=== PATIENT | female | born 1965 | race Caucasian/White ===

== ENCOUNTER 2017-12-01 17:16 | Emergency (ER) | payer MEDICAID, SELFPAY ==
[2017-12-01 17:16] VITALS: BP 133/81; PULSE 73; RESP 16; TEMP 37.1; O2SAT 96; BMI 53.1
--- NOTE | 2017-12-01 18:09 | ED.VISSUMM ---
- ER Visit Summary Date of Service: 12/01/17 Chief Complaint: Cough History of Present Illness: The patient is a 52 F presenting with cough ?9 days. She states she has had subjective fever chills at home. She complains of rhinorrhea. She has had a productive cough. She admits to shortness of breath. Denies chest pain. Denies sick contacts. Denies other complaints. Physical Examination: Vitals are stable. Patient is afebrile. Alert no acute distress. HEENT exam is unremarkable. Pharynx is normal Neck is supple. Lungs are mild expiratory wheezing bilaterally Heart is regular rate and rhythm. Abdomen is soft nontender nondistended. Extremities are unremarkable. Skin is warm and dry. Remainder of exam is unremarkable. Emergency Department Course and Treatment: Patient is given albuterol Atrovent aerosols with improvement. Chest x-ray shows no acute process. Patient given a prescription for Tessalon Perles. She states she has an albuterol inhaler at home. Advised to follow-up with her primary care physician. Advised return to the ED for worsening complaints. Disposition: Discharge home Impression: URI This note was generated with [employer] dictation software. It may contain incorrect words, spelling, and punctuation that were not noted in review of the chart prior to signing ED Disposition - Plan for ED Patient: Chief Complaint: Cough Referrals: Oswald Erazo DO [Primary Care Provider] -
[2017-12-01] MEDS: Ipratropium/Albuterol Sulfate 3 ML AMPUL.NEB INHALATION (18:24)
[2017-12-01 18:25] VITALS: PULSE 69; RESP 18
--- NOTE | 2017-12-01 18:45 | RAD_ITS ---
STUDY: X-RAY CHEST REASON FOR EXAM: Female, 52 years old. Cough TECHNIQUE: Frontal and lateral views COMPARISON: None. FINDINGS: The lungs are clear and expanded. There is no demonstrated pleural abnormality. Normal size heart. Normal mediastinum and victor manuel. Normal visualized pulmonary arteries. Normal visualized aortic arch and descending thoracic aorta. Degenerative changes of the thoracic spine. Normal visualized ribs, clavicles, and shoulders. There is no demonstrated abnormality of the visualized soft tissue structures of the upper abdomen. RAD/Chest PA and Lateral IMPRESSION: Normal x-ray examination of the chest. Electronically Signed: Kody Patel DO at 19:06 EDT Tel [phone], Service support ,
--- NOTE | 2017-12-01 19:37 | ED.DEP ---
ED Disposition - Plan for ED Patient: Chief Complaint: Cough Instructions: ED Upper Resp Infec No Abx Tx Prescriptions: Benzonatate [Tessalon Perle] 200 mg PO TID PRN PRN #20 capsule PRN Reason: Cough Referrals: Oswald Erazo DO [Primary Care Provider] -
[2017-12-01 19:42] VITALS: BP 124/75; PULSE 68; RESP 18; O2SAT 98
== END 2017-12-01 19:43 | disposition home or self-care (01) ==
PROVIDERS: Emergency Provider Emergency Medicine; Family Provider Student in an Organized Health Care Education/Training Program; PCP Student in an Organized Health Care Education/Training Program
DX: J06.9 Acute upper respiratory infection, unspecified (principal); E11.9 Type 2 diabetes mellitus without complications; I10 Essential (primary) hypertension; E78.00 Pure hypercholesterolemia, unspecified; J45.909 Unspecified asthma, uncomplicated; F32.9 Major depressive disorder, single episode, unspecified; M54.9 Dorsalgia, unspecified; G89.29 Other chronic pain
CPT/HCPCS: 71046; 94640; 99282

== ENCOUNTER 2018-03-20 11:15 | Emergency (ER) | payer MEDICAID, SELFPAY ==
[2018-03-20 11:15] VITALS: BP 142/88; PULSE 81; RESP 16; TEMP 36.7; O2SAT 98; BMI 57.7
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
[2018-03-20] MEDS: Acetaminophen 500 MG Tablet 1000 MG PO (12:10)
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
[2018-03-20 13:27] VITALS: RESP 16
--- NOTE | 2018-03-20 13:44 | ED.RN ---
REVIEWED D/C INSTRUCTIONS, FOLLOW UP CARE, AND S/S THAT WOULD WARRANT A RETURN TO THE ED WITH PT. PT VERBALIZED AN UNDERSTANDING AND DENIES FURTHER QUESTIONS FOR THIS RN. PT SKIN P/W/D, PT A&O X 3, RESP EVEN AND UNLABORED, NO DISTRESS NOTED. PT AMBULATED OUT OF ED, GAIT STEADY.
== END 2018-03-20 13:45 | disposition home or self-care (01) ==
PROVIDERS: Emergency Provider Emergency Medicine; Family Provider Student in an Organized Health Care Education/Training Program; PCP Student in an Organized Health Care Education/Training Program
DX: S09.90XA Unspecified injury of head, initial encounter (principal); V50.5XXA Driver of pick-up truck or van injured in collision with pedestrian or animal in traffic accident, initial encounter; Y93.9 Activity, unspecified; Y92.411 Interstate highway as the place of occurrence of the external cause; Y99.9 Unspecified external cause status; E11.9 Type 2 diabetes mellitus without complications; I10 Essential (primary) hypertension
CPT/HCPCS: 70450; 72125; 99283